=== PATIENT | male | born 1980 | race African-American/Black ===

== ENCOUNTER 2017-03-03 05:18 | Emergency (ER) | payer MEDICARE, OTHER ==
[~2017-03-03 05:18] MED LIST: AMOXICILLIN500 M1 PO; FIORICET 50-321 EACH PO; FLEXERIL PO; FLEXERIL10 M1 PO; FLEXERIL10 MG PO; FLONASE16 GM; MAGIC MOUTHWASH PO; MEDROL PO; MOTRIN600 MG PO; NAPROSYN500 MG PO; VICODIN PO; VOLTAREN75 MG PO
== END 2017-03-03 06:38 | disposition home or self-care (01) ==
LOC: CED 05:18
DX: J02.9 Acute pharyngitis, unspecified (principal)
CPT/HCPCS: 87651; 99283